=== PATIENT | female | born 1980 | race African-American/Black ===

== ENCOUNTER 2019-07-28 19:01 | Emergency (ER) | payer OTHER ==
[~2019-07-28] VITALS: Ht 160 cm; Wt 90.7 kg
[~2019-07-28 19:01] MED LIST: AFRIN NASAL SPR30 ML NASAL; SUDAFED 12 HOU120 M1 PO
[2019-07-28 19:43] VITALS: BP 130/98
--- NOTE | 2019-07-28 19:43 | NUR ---
ED Nurse Note: Walk-in patient presents with complaints of stoamch pain an diarrhea x 3 days. Urine specimen collected and sent to lab. Will continue to monitor.
[2019-07-28 19:44] VITALS: BP 133/98
[2019-07-28] MEDS ORDERED: Lidocaine 2% Visc 15ml soln ORAL ONE (19:45)
[2019-07-28] MEDS ORDERED: Mylanta II UD 30ml ORAL ONE (19:45)
[2019-07-28] MEDS ORDERED: Dicyclomine HCl 10mg/5ml oral soln ORAL ONE (19:45)
[2019-07-28 20:31] LABS: APPEARANCE,URINE SLIGHTLY CLOUDY; BILIRUBIN, URINE NEGATIVE (NEGATIVE); COLOR,URINE PALE YELLOW; GLUCOSE, URINE (UA) NEGATIVE (NEGATIVE); KETONES,URINE NEGATIVE (NEGATIVE); LEUKOCYTE ESTERASE ,URINE 2+ (NEGATIVE); NITRITE,URINE NEGATIVE (NEGATIVE); PH,URINE 5 (4.5-8.0); PROTEIN,URINE NEGATIVE (NEGATIVE); UROBILINOGEN,URINE NORMAL MG/DL (0.0-1.0)
[2019-07-28] MEDS ORDERED: DICYCLOMINE HCL10 MG ORAL (20:55)
[2019-07-28] MEDS ORDERED: RANITIDINE HCL150 MG ORAL (20:55)
[2019-07-28] MEDS ORDERED: ONDANSETRON ODT4 MG BC (20:55)
[2019-07-28 21:00] VITALS: BP 133/98
--- NOTE | 2019-07-28 21:00 | NUR ---
ER DISCHARGE NOTE: Patient is cleared to be discharged per ERMD, pt is aox4, on room air, with stable vital signs. pt was given dc and prescription instructions, pt was able to verbalize understanding, pt id band removed without complications. pt is able to ambulate with steady gait. pt took all belongings.
--- NOTE | 2019-07-28 21:32 | Emergency Room Report ---
History of Present Illness General Chief Complaint: Abdominal Pain Source: Patient Present Illness HPI 39-year-old female presents ED for evaluation. Complaining of abdominal pain with diarrhea. Started 3 days ago. Pain is cramping, 6 out of 10, nonradiating. Denies fevers or chills. Denies nausea or vomiting. Notes some frequent urination. Denies flank pain. Sick contacts or recent travel. Denies recent antibiotic use. No other aggravating relieving factors. Denies any other associated symptoms Allergies: Coded Allergies: No Known Allergies (Unverified , 07/08/19) Patient History Past Medical History: HTN Past Surgical History: none Pertinent Family History: none Social History: Denies: smoking, alcohol use, drug use Last Menstrual Period: 06/17/19 Now: No Immunizations: UTD Reviewed Nursing Documentation: PMH: Agreed; PSxH: Agreed Nursing Documentation-PMH Past Medical History: No History, Except For Hx Hypertension: Yes Review of Systems All Other Systems: negative except mentioned in HPI Physical Exam Vital Signs Date Time Temp Pulse Resp B/P (MAP) Pulse Ox O2 Delivery O2 Flow Rate FiO2 07/28/19 19:25 98.6 81 18 133/98 (110) 100 Room Air Sp02 EP Interpretation: reviewed, normal General Appearance: no apparent distress, alert, GCS 15, non-toxic Head: normocephalic, atraumatic Eyes: bilateral eye normal inspection, bilateral eye PERRL ENT: hearing grossly normal, normal pharynx, no angioedema, normal voice Neck: full range of motion, supple/symm/no masses Respiratory: chest non-tender, lungs clear, normal breath sounds, speaking full sentences Cardiovascular #1: regular rate, rhythm, no edema Cardiovascular #2: 2+ carotid (R), 2+ carotid (L), 2+ radial (R), 2+ radial (L) , 2+ dorsalis pedis (R), 2+ dorsalis pedis (L) Gastrointestinal: normal bowel sounds, non tender, soft, non-distended, no guarding, no rebound Rectal: deferred Genitourinary: normal inspection, no CVA tenderness Musculoskeletal: back normal, normal range of motion, gait/station normal, non- tender Neurologic: alert, motor strength/tone normal, oriented x3, sensory intact, responsive, speech normal Psychiatric: judgement/insight normal, memory normal, mood/affect normal, no suicidal/homicidal ideation Reflexes: 3+ bicep (R), 3+ bicep (L), 3+ tricep (R), 3+ tricep (L), 3+ knee (R) , 3+ knee (L) Lymphatic: no adenopathy Medical Decision Making Diagnostic Impression: Primary Impression: Gastroenteritis ER Course Hospital Course 39-year-old F presents to ED with cramping abdominal pain with diarrhea differential diagnosis: gastritis, SBO, cholecystits, gastroenteritis Clinical course Patient placed in chair. After initial history physical exam reveals female in no acute distress. Exam unremarkable. Abdomen is soft with no guarding or rebound. Good capillary refill. Vitals stable. Resting comfortably. No active vomiting. See no reason to start IV and draw labs. Patient agrees. UA unremarkable. Patient given GI cocktail, Zofran, Pepcid. States she feels better after medications. Will discharge to home. Safe for discharge. States she has a PMD I feel this is a highly complex case requiring extensive working including EKG/ Rhythm strip, Xray/CT/US, Blood/urine lab work, repeat exams while in ED, and administration of strong opiates/narcotics for pain control, admission to hospital or close patient follow up. Diagnosis - gastroenteritis Stable and discharged to home with prescriptions for zantac, zofran, bentyl. Followup with PMD. Return to ED if symptoms recur or worsen Labs Test 07/28/19 19:46 Urine Color Pale yellow Urine Appearance Slightly cloudy Urine pH 5 (4.5-8.0) Urine Specific [place] 1.025 (1.005-1.035) Urine Protein Negative (NEGATIVE) Urine Glucose (UA) Negative (NEGATIVE) Urine Ketones Negative (NEGATIVE) Urine Blood Negative (NEGATIVE) Urine Nitrite Negative (NEGATIVE) Urine Bilirubin Negative (NEGATIVE) Urine Urobilinogen Normal MG/DL (0.0-1.0) Urine Leukocyte Esterase 2+ (NEGATIVE) Urine RBC 0-2 /HPF (0 - 2) Urine WBC 2-4 /HPF (0 - 2) Urine Squamous Epithelial Cells Moderate /LPF (NONE/OCC) Urine Bacteria Few /HPF (NONE) Urine HCG, Qualitative Negative (NEGATIVE) Last Vital Signs Date Time Temp Pulse Resp B/P (MAP) Pulse Ox O2 Delivery O2 Flow Rate FiO2 07/28/19 21:00 98.6 18 133/98 100 Room Air 07/28/19 19:44 89 Status: improved Disposition: HOME, SELF-CARE Condition: Stable Scripts Dicyclomine Hcl* (DICYCLOMINE HCL*) 10 Mg Capsule 10 MG ORAL QID, #20 CAP Prov: Franck Roach MD 07/28/19 Ondansetron Odt* (ZOFRAN ODT*) 4 Mg Tab.rapdis 4 MG BC EVERY 6 HOURS PRN for Nausea & Vomiting, #10 TAB 0 Refills Prov: Franck Roach MD 07/28/19 Ranitidine Hcl* (ZANTAC*) 150 Mg Tablet 150 MG ORAL TWICE A DAY, #30 TAB Prov: Franck Roach MD 07/28/19 Departure Forms: Return to Work Return to Work Date: Jul 30, 2019 Work Restrictions: None Patient Instructions: Viral Gastroenteritis, Adult, [id number] Franck Roach MD Jul 28, 2019 21:32
== END 2019-07-28 20:57 | disposition home or self-care (01) ==
LOC: EMR 20:43
DX: K52.9 Noninfective gastroenteritis and colitis, unspecified (principal); I10 Essential (primary) hypertension
CPT/HCPCS: 81003; 81025; 99283